=== PATIENT | male | born 1985 | race African-American/Black ===

== ENCOUNTER 2019-06-01 19:34 | Emergency (ER) | payer MEDICARE, OTHER ==
[~2019-06-01] VITALS: Ht 180.3 cm; Wt 36.3 kg
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
[2019-06-01 19:53] VITALS: BP 130/84
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
[2019-06-01] MEDS ORDERED: Ketorolac 30mg Inj IM ONE (20:30)
[2019-06-01] MEDS ORDERED: HYDROcodone/Acetamin 7.5/325 tab ORAL ONE (20:30)
--- NOTE | 2019-06-01 20:40 | NUR ---
ED Nurse Note: pt left for x ray
--- NOTE | 2019-06-01 20:54 | NUR ---
ED Nurse Note: returned back from x ray
[2019-06-01] MEDS ORDERED: ACETAMINOPHEN325 M1 ORAL (21:11)
[2019-06-01] MEDS ORDERED: ROBAXIN-750750 MG PO (21:11)
[2019-06-01] MEDS ORDERED: IBUPROFEN600 MG ORAL (21:11)
[2019-06-01 21:16] VITALS: BP 130/84
--- NOTE | 2019-06-01 21:16 | NUR ---
ER DISCHARGE NOTE: Patient is cleared to be discharged per ERMD, pt is aox4, on room air, with stable vital signs. pt was given dc and prescription instructions, pt was able to verbalize understanding, pt id band and iv site removed without complications. pt was assisted to his car using hospital W/C. pt took all belongings.
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
== END 2019-06-01 21:16 | disposition home or self-care (01) ==
LOC: EMR 20:44
DX: S39.012A Strain of muscle, fascia and tendon of lower back, initial encounter (principal); S40.012A Contusion of left shoulder, initial encounter; V43.62XA Car passenger injured in collision with other type car in traffic accident, initial encounter; Y92.410 Unspecified street and highway as the place of occurrence of the external cause
CPT/HCPCS: 72020; 73030; 96372; 99284; J1885

== ENCOUNTER 2019-07-28 11:25 | Emergency (ER) | payer MEDICARE ==
[~2019-07-28] VITALS: Ht 180.3 cm; Wt 90.7 kg
[~2019-07-28 11:25] MED LIST: ACETAMINOPHEN325 M1 ORAL; IBUPROFEN600 MG ORAL; ROBAXIN-750750 MG PO
[2019-07-28 11:34] VITALS: BP 125/72
[2019-07-28] MEDS ORDERED: ALBUTEROL2.5 MG/3 M INH (11:37)
--- NOTE | 2019-07-28 11:40 | NUR ---
ED Nurse Note: Pt walked in from home due to coughing and congestion x4 days. Denies fever. AAO x4 and ambulatory with unlabored breathing.
[2019-07-28] MEDS ORDERED: PROMETHAZI6.25 MG/1 ORAL (11:51)
[2019-07-28] MEDS ORDERED: ALBUTEROL SULF8.5 GM INH (11:51)
[2019-07-28] MEDS ORDERED: MEDROL DOSEPAK4 MG ORAL (11:51)
[2019-07-28 11:54] VITALS: BP 134/70
--- NOTE | 2019-07-28 11:54 | NUR ---
ER DISCHARGE NOTE: Patient is cleared to be discharged per ERMD, pt is aox4, on room air, with stable vital signs. pt was given dc and prescription instructions, pt was able to verbalize understanding, pt id band removed. pt is able to ambulate with steady gait. pt took all belongings.
--- NOTE | 2019-07-28 13:44 | Emergency Room Report ---
History of Present Illness General Chief Complaint: Upper Respiratory Illness Source: Patient Present Illness HPI Patient presents with complaints of cough for the past several days Has become more productive over the past 1 day patient has history of underlying asthma Denies any fevers he does have a mild sore throat Denies any headache denies any chest pain Denies any recent travel patient also has some nasal congestion Denies any photophobia Allergies: Coded Allergies: No Known Allergies (Unverified , 06/01/19) Patient History Past Medical History: see triage record Reviewed Nursing Documentation: PMH: Agreed; PSxH: Agreed Nursing Documentation-PMH Past Medical History: No History, Except For Hx Cardiac Problems: No - bronchitis Hx Asthma: Yes Review of Systems All Other Systems: negative except mentioned in HPI Physical Exam Vital Signs Date Time Temp Pulse Resp B/P (MAP) Pulse Ox O2 Delivery O2 Flow Rate FiO2 07/28/19 11:34 98.2 89 17 125/72 95 Room Air Sp02 EP Interpretation: reviewed, normal General Appearance: well appearing, no apparent distress Head: normocephalic, atraumatic Eyes: bilateral eye PERRL, bilateral eye EOMI ENT: hearing grossly normal, normal pharynx, TMs + canals normal, uvula midline Neck: full range of motion, supple, no meningismus, no bony tend Respiratory: lungs clear, normal breath sounds, no rhonchi, no respiratory distress, no retraction, no accessory muscle use Cardiovascular #1: normal peripheral pulses, regular rate, rhythm, no edema, no gallop, no JVD, no murmur Gastrointestinal: normal bowel sounds, non tender, soft, no mass, no organomegaly, non-distended, no guarding, no hernia, no pulsatile mass, no rebound Genitourinary: no CVA tenderness Musculoskeletal: normal inspection Neurologic: oriented x3, responsive, weigher and crusher III-XII nml as tested, motor strength/ tone normal, sensory intact Psychiatric: mood/affect normal Skin: no rash Lymphatic: normal inspection, no adenopathy Medical Decision Making Diagnostic Impression: Primary Impression: Upper respiratory infection Additional Impression: bronchitis ER Course Patient's exam and history of multiple differentials including but not limited to pneumonia, URI, bronchitis Given the exam and evaluation findings are more consistent with what appears to be likely bronchitis along with some asthma exacerbation as well Patient will be treated symptomatically initially and will have conservative outpatient follow-up Last Vital Signs Date Time Temp Pulse Resp B/P (MAP) Pulse Ox O2 Delivery O2 Flow Rate FiO2 07/28/19 11:54 98.6 77 16 134/70 99 Room Air Status: unchanged Disposition: HOME, SELF-CARE Condition: Stable Scripts Promethazine Hcl (PROMETHAZINE HCL*) 6.25 Mg/5 Ml Syrup 5 ML ORAL Q8H for 5 Days, #120 ML 0 Refills Prov: Santos Boyle DO 07/28/19 Methylprednisolone (Methylprednisolone*) 4MG Dspk 4 MG ORAL DIRECTED for 6 Days, #21 EA 0 Refills Day 1: Two tablets before breakfast, one after lunch, one after dinner, and two at bedtime. If started late in the day, take all six tablets at once or divide into two or three doses, unless otherwise directed by prescriber. Day 2: One tablet before breakfast, one after lunch, one after dinner, and two at bedtime Day 3: One tablet before breakfast, one after lunch, one after dinner, and one at bedtime Day 4: One tablet before breakfast, one after lunch, and one at bedtime Day 5: One tablet before breakfast and one at bedtime Day 6: One tablet before breakfast Prov: Santos Boyle DO 07/28/19 Albuterol Sulfate* (ALBUTEROL SULFATE MDI*) 8.5 Gm Hfa.aer.ad 2 PUFF INH Q4H PRN for cough/wheezing for 5 Days, #1 EA 0 Refills Prov: Santos Boyle DO 07/28/19 Referrals: [facility],REFERRING (PCP) [facility] Departure Forms: Return to Work Return to Work in (Days): 2 Return to Work Date: Jul 30, 2019 Patient Instructions: Upper Respiratory Infection, Adult, Acute Bronchitis, [id number] Additional Instructions: Patient is provided with the discharge instructions notified to follow up with primary doctor in the next 2-3 days otherwise return to the er with any worsening symptoms. Please note that this report is being documented using [employer] ([employer]) technology. This can lead to erroneous entry secondary to incorrect interpretation by the dictating instrument. Santos Boyle DO Jul 28, 2019 13:44
== END 2019-07-28 11:55 | disposition home or self-care (01) ==
LOC: EMR 11:45
DX: J40 Bronchitis, not specified as acute or chronic (principal); J06.9 Acute upper respiratory infection, unspecified
CPT/HCPCS: 99282